=== PATIENT | male | born 1960 | race African-American/Black ===

== ENCOUNTER 2016-07-04 14:07 | Inpatient (IN) | payer OTHER ==
[2016-07-04] MEDS ORDERED: SODIUM CHLORIDE 1,000 ML IV ONE ×2 (14:28→16:16)
[2016-07-04 14:55] LABS: URINE APPEARANCE CLEAR; URINE BILIRUBIN NEGATIVE (NEGATIVE); URINE BLOOD NEGATIVE (NEGATIVE); URINE COLOR YELLOW; URINE GLUCOSE (UA) NEGATIVE (NEGATIVE); URINE KETONE NEGATIVE (NEGATIVE); URINE LEUK ESTERASE NEGATIVE (NEGATIVE); URINE NITRITE NEGATIVE (NEGATIVE); URINE PROTEIN NEGATIVE (NEGATIVE); URINE UROBILINOGEN NEGATIVE E.U./dl (0.2-1.0)
[2016-07-04 15:18] LABS: MCH 32.4 pg (25.7-33.7); MCHC 33.5 g/dl (32.0-35.9); MEAN CELL VOLUME 96.7 fl (80-96); MEAN PLT VOLUME 10.7 fl (7.5-11.1); PLATELET COUNT 131 K/MM3 (134-434); RDW 13.9 % (11.9-15.9); WHITE BLOOD COUNT 3.1 K/mm3 (4.0-10.0)
--- NOTE | 2016-07-04 15:29 | PDOC ---
History of Present Illness - General History Source: Patient Exam Limitations: No Limitations - History of Present Illness Initial Comments: 07/04/16 15:41 The patient is a 55 year old male with history of HIV (not on medications, viral load unknown) and history of EtOH abuse s/p detox sent from [facility] s/p mechanical fall this morning. He does report 2 weeks of nonproductive cough and 3 days of loose stool w/o any abdominal pain, pt denies any fever, but thouht someone told him he had a temperature. This morning he slipped and fell, he was wearing his antislip socks, but the disability services coordinator was on the top of his foot. He denies any lightheadedness, shortness of breath, headache, dizziness, palpitations, chest pain, abdominal pain, back pain, leg swelling, prior to the fall. He any denies melena or hematochezia. He denies wheezing or hemoptysis. He states his head hit the sink. No LOC. He denies headache, neck pain, visual changes, numbness/tingling, or focal weakness. He denies nausea, vomiting, or diaphoresis. He denies changes in eating or drinking. He denies any other injury. <Melanie Vivar - Last Filed: 07/04/16 15:41> - General History Source: Patient Exam Limitations: No Limitations <Gustavo Hernández - Last Filed: 07/04/16 18:33> - General Chief Complaint: Injury Stated Complaint: FALL Time Seen by Provider: 07/04/16 14:26 Past History <Melanie iVvar - Last Filed: 07/04/16 15:41> - Past Medical History Anemia: No Asthma: Yes Cancer: No Cardiac Disorders: No CVA: No COPD: No CHF: No Dementia: No Diabetes: No GI Disorders: No Disorders: No HTN: No Hypercholesterolemia: No HIV: Yes Kidney Stones: No Liver Disease: No Suicide Attempt (Hx): No Seizures: Yes (2014) Thyroid Disease: No - Surgical History Abdominal Surgery: No Appendectomy: No Cardiac Surgery: No Cholecystectomy: No Lung Surgery: No Neurologic Surgery: No Orthopedic Surgery: No - Reproductive History Testicular Surgery: No - Psycho/Social/Smoking Cessation Hx Anxiety: No Suicidal Ideation: No Smoking History: Current every day smoker Have you smoked in the past 12 months: Yes Number of Cigarettes Smoked Daily: 10 Cigars Per Day: 0 Information on smoking cessation initiated: No 'Breaking Loose' booklet given: 06/15/16 Hx Alcohol Use: Yes Drug/Substance Use Hx: No Substance Use Type: None Hx Substance Use Treatment: Yes (this is his first inpatient rehabilitation treatment) <Gustavo Hernández - Last Filed: 07/04/16 18:33> - Past Medical History Allergies/Adverse Reactions: Allergies Allergy/AdvReac Type Severity Reaction Status Date / Time No Known Allergies Allergy Verified 07/04/16 14:27 Home Medications: Ambulatory Orders NK [No Known Home Medication] 06/15/16 Trauma Specific PMHX - Complaint Specific PMHX Arthritis: No <Gustavo Hernández - Last Filed: 07/04/16 18:33> Review of Systems - Review of Systems Able to Perform ROS?: Yes Comments:: 07/04/16 15:42 CONSTITUTIONAL: No reported: fever, chills Diaphoresis, Generalized Weakness, Malaise, Loss of Appetite HEENT: No reported: Rhinorrhea, Nasal Congestion, Throat Pain, Throat Swelling, Difficulty Swallowing, Mouth Swelling, Ear Pain, Eye Pain, Visual Changes CARDIOVASCULAR: No reported: Chest Pain, Syncope, Palpitations, Irregular Heart Rate, Lightheadedness, Peripheral Edema RESPIRATORY: Present: nonproductive coughx2 weeks No reported: Shortness of Breath, SOB with Exertion, Orthopnea, Wheezing, Stridor, Hemoptysis GASTROINTESTINAL: Present: loose stoolx3 days No reported: Abdominal pain, Abdominal Distension, Nausea, Vomiting, Constipation, Melena, Hematochezia GENITOURINARY: No reported: Dysuria, Frequency, Urgency, Hesitancy, Flank Pain, Genital Pain MUSCULOSKELETAL: No reported: Myalgia, Arthralgia, Joint Swelling, Back pain, Neck Pain SKIN: No reported: Rash, Itching, Pallor HEMEATOLOGIC/IMMUNOLOGIC: No reported: Easy Bleeding, Easy Bruising, Lymphadenopathy, Frequent infections ENDOCRINE: No reported: Unexplained Weight Gain, Unexplained Weight Loss, Heat Intolerance , Cold Intolerance NEUROLOGIC: No reported: Headache, Focal Weakness, Paresthesias, Vertigo, Lightheadedness, Seizure, Mental Status Changes, Incontinence PSYCHIATRIC: No reported: Anxiety, Depression <Melanie Vivar - Last Filed: 07/04/16 15:41> *Physical Exam - Vital Signs Last Vital Signs Temp Pulse Resp BP Pulse Ox 97.7 F 109 H 18 108/72 96 07/04/16 14:10 07/04/16 14:10 07/04/16 14:10 07/04/16 14:10 07/04/16 14:10 - Physical Exam Comments: 07/04/16 15:42 GENERAL: The patient is awake, alert, and fully oriented, Nontoxic - in no acute distress. HEAD: Normocephalic, atraumatic. No tenderness, swelling, or abrasions. EYES: extraocular movements intact, sclera anicteric, conjunctiva clear. ENT: Normal voice, Moist mucous membranes. NECK: Normal range of motion, supple LUNGS: Breath sounds equal, clear to auscultation bilaterally. No wheezes, no rhonchi, no rales. HEART: Tachycardic rate, regular rhythm, without murmur, rub or gallop. ABDOMEN: Soft, nontender, normoactive bowel sounds. No guarding, no rebound. No CVA tenderness EXTREMITIES: Normal range of motion, no edema. No clubbing or cyanosis. No cords, erythema, or tenderness. NEUROLOGICAL: No facial assymetry, Normal speech, PSYCH: Normal mood, normal affect. SKIN: Warm, Dry, normal turgor, Back: No midline tenderness to the cervical, thoracic or lumbar spine Musculoskelatal: FROM of b/l shoulders, elbows, wrist. FROM of hips, knees, ankles - No signs of ecchymosis, erythema, or crepitus noted on palpation extremities, chest wall, clavicals, ribs, back. <Melanie Vivar - Last Filed: 07/04/16 15:41> - Vital Signs Last Vital Signs Temp Pulse Resp BP Pulse Ox 97.7 F 109 H 18 108/72 96 07/04/16 14:10 07/04/16 14:10 07/04/16 14:10 07/04/16 14:10 07/04/16 14:10 <Gustavo Hernández - Last Filed: 07/04/16 18:33> Heart Score/ECG Review - ECG Impressions Comment:: 07/04/16 15:29 Twelve-lead EKG was performed and reviewed by me. There is normal sinus rhythm with a rate of 108 Left axis deviation The intervals are normal. Q waves in inferior leads <Gustavo Hernández - Last Filed: 07/04/16 18:33> ED Treatment Course - LABORATORY CBC & Chemistry Diagram: 07/04/16 14:45 07/04/16 14:45 - ADDITIONAL ORDERS Additional order review: Laboratory Results 07/04/16 14:30 Urine Color Yellow Urine Appearance Clear Urine pH 7.0 D Ur Specific [place] 1.019 Urine Protein Negative Urine Glucose (UA) Negative Urine Ketones Negative Urine Blood Negative Urine Nitrite Negative Urine Bilirubin Negative Urine Urobilinogen Negative Ur Leukocyte Esterase Negative 07/04/16 14:45 RBC 3.43 L MCV 96.7 H MCHC 33.5 RDW 13.9 MPV 10.7 Neutrophils % Y Lymphocytes % Y - Medications Given in the ED: ED Medications Discontinued Medications Generic Name Dose Route Start Last Admin Trade Name Freq PRN Reason Stop Dose Admin Sodium Chloride 1,000 mls @ 1,000 mls/hr 07/04/16 14:28 07/04/16 15:00 Normal Saline - IV 07/04/16 15:27 1,000 mls/hr .Q1H ONE Administration <Melanie Vivar - Last Filed: 07/04/16 15:41> - LABORATORY CBC & Chemistry Diagram: 07/04/16 14:45 07/04/16 14:45 - ADDITIONAL ORDERS Additional order review: Laboratory Results 07/04/16 14:30 Urine Color Yellow Urine Appearance Clear Urine pH 7.0 D Ur Specific [place] 1.019 Urine Protein Negative Urine Glucose (UA) Negative Urine Ketones Negative Urine Blood Negative Urine Nitrite Negative Urine Bilirubin Negative Urine Urobilinogen Negative Ur Leukocyte Esterase Negative 07/04/16 14:45 RBC 3.43 L MCV 96.7 H MCHC 33.5 RDW 13.9 MPV 10.7 Neutrophils % Y Lymphocytes % Y <Gustavo Hernández - Last Filed: 07/04/16 18:33> Medical Decision Making - Medical Decision Making 07/04/16 15:25 55y M hx of HIV (not on HAART), etoh abuse s.p detox, in detox presents s/p mechanical fall - pt states he slipped on the floor ecause his socks were slippery (the grippy part of his socks were reversed and on the top). The pt states hehit a sink - denies LOC, n/v, vision cahnges, numbness/tingling/ weakness, lightehadedness, cp, palpitations, fever/chills. Pt does endorse having a 'cold' with congestion/cough for the past few days. Pts exam is unremarkable without any focal bony tenderness on his scalp, spine/back. pts hr noted mildly tachycardic - will check labs, cxr, to r/o pna will give fluids for hydration pt declines pain meds as he is not in pain. 07/04/16 16:37 The patients labs were reviewed noted for leukopenia, thrombocytopenia, approx baseline for patient pts Cr noted to be elevated along with BUN - it appears the pt had Cr that improved with oral hydration. suspect his sypmtoms secondary to dehydration. Pt received 2L of NS, will discharge the patient back to [facility] if his HR normalizes - will have dr. kitchen recheck Cr and further oral hydration. The plan was discussed with the patient as well as dr. Kitchen - The pt states he would prefer that as opposed to staying in the hospital for hydration and rechecking his lab work. If his Cr is worsening or has other sypmtoms will send back to hospital for further evaluation. They agree and are comfortable with the plan. if the pts HR is persistently elevated,w il consider observation in hospital for hydration and repeat labs. 07/04/16 18:30 pt still persistently tachycardic - after 2L his HR is still stable at around 108-110 pt otherwise has no complaints - will send repeat BMP, magnesium, TSH also consider ?PE?? will send screening dimer. if pt is persistently tachycardic for unkonwn reason - will admit for further management. <Gustavo Hernández - Last Filed: 07/04/16 18:33> *DC/Admit/Observation/Transfer - Attestations Scribe Attestion: 07/04/16 15:42 Documentation prepared by Melanie Vivar, acting as medical records library professor for Gustavo Hernández MD. <Melanie Vivar - Last Filed: 07/04/16 15:41> - Discharge Dispostion Admit: No <Gustavo Hernández - Last Filed: 07/04/16 18:33> Diagnosis at time of Disposition: Acute renal failure Qualifiers: Acute renal failure type: unspecified Qualified Code(s): N17.9 - Acute kidney failure, unspecified Head injury due to trauma Qualifiers: Encounter type: initial encounter Qualified Code(s): S09.90XA - Unspecified injury of head, initial encounter - Patient Instructions Printed Discharge Instructions: DI for Closed Head Injury Additional Instructions: Return to the emergency department immediately with ANY new, persistent or worsening symptoms. Your cr was elevated to 2.4, please have dr. Kitchen repeat the blood work tomorrow. You MUST call and follow up with your doctor tomorrow for further evaluation of your symptoms. Results were discussed with you. Please make sure your doctor reviews the results of your emergency evaluation.
[2016-07-04 15:45] LABS: ALBUMIN 2.9 g/dl (3.4-5.0); BILIRUBIN,TOTAL 0.3 mg/dL (0.2-1.0); CALCIUM 8.7 mg/dL (8.5-10.1); CREATININE 2.4 mg/dL (0.7-1.3); TOT PROT 8.8 g/dl (6.4-8.2)
[2016-07-04 16:00] LABS: PLATELET COMMENT2 NO CLUMPING NOTED; PLATELET ESTIMATE DECREASED (NORMAL)
[2016-07-04 19:08] LABS: CALCIUM 7.5 mg/dL (8.5-10.1); CREATININE 2.1 mg/dL (0.7-1.3)
--- NOTE | 2016-07-04 20:11 | PDOC ---
*Physical Exam - Vital Signs Last Vital Signs Temp Pulse Resp BP Pulse Ox 97.7 F 108 H 16 116/75 96 07/04/16 14:10 07/04/16 16:18 07/04/16 16:18 07/04/16 16:18 07/04/16 16:18 - Physical Exam General Appearance: Yes: Nourished ED Treatment Course - LABORATORY CBC & Chemistry Diagram: 07/04/16 14:45 07/04/16 18:40 - ADDITIONAL ORDERS Additional order review: Laboratory Results 07/04/16 07/04/16 07/04/16 18:40 18:40 18:40 D-Dimer 432 H Sodium 139 Potassium 3.6 D Chloride 109 H Carbon Dioxide 20 L Anion Gap 10 BUN 27 H Creatinine 2.1 H Creat Clearance w eGFR Random Glucose 99 Calcium 7.5 L Magnesium 2.3 Total Bilirubin AST ALT Alkaline Phosphatase Total Protein Albumin TSH Urine Color Urine Appearance Urine pH Ur Specific [place] Urine Protein Urine Glucose (UA) Urine Ketones Urine Blood Urine Nitrite Urine Bilirubin Urine Urobilinogen Ur Leukocyte Esterase 07/04/16 07/04/16 07/04/16 18:40 14:45 14:30 D-Dimer Sodium 139 Potassium 4.8 Chloride 105 Carbon Dioxide 23 Anion Gap 11 BUN 29 H D Creatinine 2.4 H D Creat Clearance w eGFR 28.04 Random Glucose 86 Calcium 8.7 Magnesium Total Bilirubin 0.3 D AST 51 H D ALT 46 D Alkaline Phosphatase 86 Total Protein 8.8 H Albumin 2.9 L TSH 2.37 D Urine Color Yellow Urine Appearance Clear Urine pH 7.0 D Ur Specific [place] 1.019 Urine Protein Negative Urine Glucose (UA) Negative Urine Ketones Negative Urine Blood Negative Urine Nitrite Negative Urine Bilirubin Negative Urine Urobilinogen Negative Ur Leukocyte Esterase Negative 07/04/16 14:45 RBC 3.43 L MCV 96.7 H MCHC 33.5 RDW 13.9 MPV 10.7 Neutrophils % 71.0 Lymphocytes % 10.0 Monocytes % 14.0 H Eosinophils % 2.0 - Medications Given in the ED: ED Medications Discontinued Medications Generic Name Dose Route Start Last Admin Trade Name Freq PRN Reason Stop Dose Admin Sodium Chloride 1,000 mls @ 1,000 mls/hr 07/04/16 14:28 07/04/16 15:00 Normal Saline - IV 07/04/16 15:27 1,000 mls/hr .Q1H ONE Administration Sodium Chloride 1,000 mls @ 1,000 mls/hr 07/04/16 16:16 07/04/16 16:27 Normal Saline - IV 07/04/16 17:15 1,000 mls/hr .Q1H ONE Administration *DC/Admit/Observation/Transfer Diagnosis at time of Disposition: Elevated d-dimer Acute renal failure Qualifiers: Acute renal failure type: unspecified Qualified Code(s): N17.9 - Acute kidney failure, unspecified Head injury due to trauma Qualifiers: Encounter type: initial encounter Qualified Code(s): S09.90XA - Unspecified injury of head, initial encounter - Discharge Dispostion Condition at time of disposition: Stable Admit: Yes - Referrals - Patient Instructions Printed Discharge Instructions: DI for Closed Head Injury Additional Instructions: Return to the emergency department immediately with ANY new, persistent or worsening symptoms. Your cr was elevated to 2.4, please have dr. Kitchen repeat the blood work tomorrow. You MUST call and follow up with your doctor tomorrow for further evaluation of your symptoms. Results were discussed with you. Please make sure your doctor reviews the results of your emergency evaluation. - Post Discharge Activity
[2016-07-04] MEDS: SODIUM CHLORIDE 1,000 ML IV SCH (22:15)
--- NOTE | 2016-07-04 22:25 | HP ---
CHIEF COMPLAINT: Slipped and fell PCP: No PCP HISTORY OF PRESENT ILLNESS: Patient is a 55 year old male was sent from [facility] (Detox) s/p mechanical fall. A/c to the patient, he was about go to the sink when he slipped, fell and hit the right side of his head on to the sink. It was an unwitnessed fall but when there was a loud noise, the nurses came in and helped him. Before the incident, he didn't have any symptoms. After the fall, he started having headache which was relieved after taking tylenol. No complaints of dizziness, vertigo, tingling, numbness after the fall. Patient mentions that first he went to [facility] admitted on the regular floor for detox for alcohol dependence. He was discharged on 06/14/2016 and admitted at [facility] detox facility on 06/15/2016. Patient mentions he used to drink 1 pint of rum/day (finished in 15mins), last drink was 19 days ago. Complaints of nausea and non projectile, non bilious vomiting 3-4 times/day since few days. Also had diarrhoea 3-4times/day since several days until yesterday., non bloody. However, no bowel movements today. Denies abdominal pain, chest pain, sob, cough, palpitation. Also complaints of increased frequency of urination, urinary incontinence, nocturia (3-4times/night) for the last 2 months but no burning urination. Was diagnosed to have HIV 4years ago. (doesn't remember the last CD4 count). Was on HAART therapy for 3months but left 2 months ago since he ran out of medication, said he gets the meds from [facility]. ER course was notable for: (1) Afebrile, Hypotensive 90/55mmHg, Tachycardic (109bpm); Leukopenic (3.1); Thrombocytopenic (131), elevated D-dimer 432 (2) Creatinine 2.1 ( baseline 1.3 06/25/2016); CT head-Negative for acute pathology (3) IV fluids 2L Recent Travel: None PAST MEDICAL HISTORY: HIV not on HAART therapy, Asthma, Alcohol/nicotine dependence, alcohol related seizure PAST SURGICAL HISTORY: None Social History: Smoking:Current smoker, 10 cigs a day, started smoking at age 13 years Alcohol: 1pint of rum/day, last drink 19 days ago Drugs: Denies Family History: Allergies No Known Allergies Allergy (Verified 07/04/16 14:27) HOME MEDICATIONS: Home Medications Medication Instructions Recorded NK [No Known Home Medication] 06/15/16 REVIEW OF SYSTEMS CONSTITUTIONAL: Absent: fever, chills, diaphoresis, generalized weakness, malaise, loss of appetite, weight change HEENT: Absent: rhinorrhea, nasal congestion, throat pain, throat swelling, difficulty swallowing, mouth swelling, ear pain, eye pain, visual changes CARDIOVASCULAR: Absent: chest pain, syncope, palpitations, irregular heart rate, lightheadedness , peripheral edema RESPIRATORY: Absent: cough, shortness of breath, dyspnea with exertion, orthopnea, wheezing, stridor, hemoptysis GASTROINTESTINAL: Absent: abdominal pain, abdominal distension, nausea, vomiting, diarrhea, constipation, melena, hematochezia GENITOURINARY: Absent: dysuria, frequency, urgency, hesitancy, hematuria, flank pain, genital pain MUSCULOSKELETAL: Absent: myalgia, arthralgia, joint swelling, back pain, neck pain SKIN: Absent: rash, itching, pallor HEMATOLOGIC/IMMUNOLOGIC: Absent: easy bleeding, easy bruising, lymphadenopathy, frequent infections ENDOCRINE: Absent: unexplained weight gain, unexplained weight loss, heat intolerance, cold intolerance NEUROLOGIC: Present: Headache Absent: headache, focal weakness or paresthesias, dizziness, unsteady gait, seizure, mental status changes, bladder or bowel incontinence PSYCHIATRIC: Absent: anxiety, depression, suicidal or homicidal ideation, hallucinations. PHYSICAL EXAMINATION Vital Signs - 24 hr 07/04/16 21:56 Pulse Rate [ 117 H Right Radial] Respiratory 19 Rate Blood Pressure 130/82 [Left Arm] O2 Sat by Pulse 100 Oximetry (%) GENERAL: Patient is a normal built male, Awake, alert, and fully oriented, in no acute distress, poor hygiene. HEAD: Normal with no signs of trauma, tenderness on palpation in the right postauricular area EYES: EOM intact, no pallor or icterus. EARS, NOSE, THROAT: Ears normal. Moist mucous membranes. NECK: Normal range of motion, supple without lymphadenopathy, JVD, or masses. LUNGS: Breath sounds equal, clear to auscultation bilaterally. No wheezes, and no crackles. No accessory muscle use. HEART: Regular rate and rhythm, normal S1 and S2 without murmur, rub or gallop. ABDOMEN: Soft, nontender, not distended, normoactive bowel sounds, no guarding, no rebound, no masses. No hepatomegaly or splenomegaly. MUSCULOSKELETAL: Normal range of motion at all joints. No bony deformities or tenderness. No CVA tenderness. UPPER EXTREMITIES: 2+ pulses, warm, well-perfused. No cyanosis. No clubbing. Cap refill <2 seconds. No peripheral edema. LOWER EXTREMITIES: 2+ pulses, warm, well-perfused. No calf tenderness. No peripheral edema. NEUROLOGICAL: Cranial nerves II-XII intact. Normal speech. Normal gait. PSYCHIATRIC: Cooperative. Good eye contact. Appropriate mood and affect. SKIN: Warm, dry, normal turgor, no rashes or lesions noted. Dry cracked skin over bilateral foot ASSESSMENT/PLAN: Patient is a 55 year old male with significant past medical history of HIV not on HAART therapy, Asthma, Alcohol/nicotine dependence, alcohol related seizure was sent from [facility] (Detox) s/p mechanical fall. # Head trauma-s/p unwitnessed mechanical fall Patient sent from detox Afebrile, Hypotensive 90/55mmHg, Tachycardic (109bpm) Leukopenic (3.1); Thrombocytopenic (131), elevated D-dimer 432 CT head-Negative for acute pathology CT head-negative for acute pathology In the ED, patient received IV fluids 2L Placed on observation in Med-Surg Monitor change in mental status Neuro checks # Acute Kidney Injury- questionable CKD Creatinine 2.1 ( baseline 1.3 on 06/25/2016) IV hydration Avoid nephrotoxic drugs # HIV- Not on HAART therapy Ordered CD4 count ID consult placed Would consider starting on HAART therapy Counseling on medication compliance and the importance of continuing it # Alcohol/Nicotine dependence Sober since 19 days Detox to be continued Call to be placed tomorrow at [facility] to find out the medication he is on Not on withdrawals at this time # Alcohol related seizure No seizure activity at this time # FEN IV NS @ 100mls/hr Electrolytes to be repeated tomorrow Regular diet # Prophylaxis For DVT- On scds, ambulating For GI- Not indicated # Code Status: Full Code # Dispo: Admitted in Med-Surg. Duration of stay unknown. Illness, Investigation and Plan of care explained to the patient. He verbalized understanding. Case seen and discussed with Dr. Hanks. Visit type - Emergency Visit Emergency Visit: Yes ED Registration Date: 07/04/16 Care time: The patient presented to the Emergency Department on the above date and was hospitalized for further evaluation of their emergent condition. - New Patient This patient is new to me today: Yes Date on this admission: 07/04/16 - Critical Care Critical Care patient: No
[2016-07-05 06:06] LABS: BASOPHIL 1.2 % (0-2.0); EOSINOPHIL 8.5 % (0-4.5); MCH 32.7 pg (25.7-33.7); MCHC 33.6 g/dl (32.0-35.9); MEAN CELL VOLUME 97.4 fl (80-96); MEAN PLT VOLUME 10.5 fl (7.5-11.1); PLATELET COUNT 115 K/MM3 (134-434); WHITE BLOOD COUNT 2.8 K/mm3 (4.0-10.0)
[2016-07-05 06:29] LABS: ALBUMIN 2.8 g/dl (3.4-5.0); BILIRUBIN,TOTAL 0.3 mg/dL (0.2-1.0); CREATININE 1.9 mg/dL (0.7-1.3); MAGNESIUM 2.2 mg/dL (1.8-2.4); PHOSPHOROUS 2.4 mg/dL (2.5-4.9); TOT PROT 7.8 g/dl (6.4-8.2)
[2016-07-05 07:39] VITALS: BMI 21.1
--- NOTE | 2016-07-05 08:25 | PN ---
Progress Note, Physician Chief Complaint: ID 55 year old male alcohol dependence asked to see for HIV diagnosis several years living in [place]. THinks he was on several meds but really no idea about what meds or when he last took them. Alert NAD - Current Medication List Current Medications: Active Medications Sodium Chloride (Normal Saline -) 1,000 mls @ 83 mls/hr IV ASDIR SARAH Last Admin: 07/04/16 22:15 Dose: 83 mls/hr - Objective Vital Signs: Vital Signs Temperature 98.3 F 07/05/16 07:11 Pulse Rate 103 H 07/05/16 07:11 Respiratory Rate 20 07/05/16 07:11 Blood Pressure 108/72 07/05/16 07:11 O2 Sat by Pulse Oximetry (%) 99 07/05/16 03:49 Constitutional: Yes: Well Nourished, No Distress HENT: Yes: WNL, Atraumatic Neck: Yes: WNL, Supple Cardiovascular: Yes: Regular Rate and Rhythm, S1, S2 Respiratory: Yes: Rhonchi Gastrointestinal: Yes: WNL, Normal Bowel Sounds, Soft. No: Tenderness Edema: No Labs: CBC, BMP 07/05/16 05:53 07/05/16 05:53 Problem List - Problems (1) Acute renal failure Code(s): N17.9 - ACUTE KIDNEY FAILURE, UNSPECIFIED Qualifiers: Acute renal failure type: unspecified Qualified Code(s): N17.9 - Acute kidney failure, unspecified (2) Head injury due to trauma Code(s): S09.90XA - UNSPECIFIED INJURY OF HEAD, INITIAL ENCOUNTER Qualifiers: Encounter type: initial encounter Qualified Code(s): S09.90XA - Unspecified injury of head, initial encounter (3) HIV (human immunodeficiency virus infection) Code(s): Z21 - ASYMPTOMATIC HUMAN IMMUNODEFICIENCY VIRUS INFECTION STATUS Assessment/Plan Laboratory Tests 07/04/16 07/04/16 07/05/16 14:30 14:45 05:53 WBC 2.8 L Hgb 10.5 L Hct 31.2 L Plt Count 115 L Neutrophils % 70.0 Lymphocytes % 9.6 Monocytes % 10.7 H Eosinophils % 8.5 H D Band Neutrophils 3.0 BUN Creatinine Creat Clearance w eGFR Urine Glucose (UA) Negative Ur Leukocyte Esterase Negative 07/05/16 05:53 WBC Hgb Hct Plt Count Neutrophils % Lymphocytes % Monocytes % Eosinophils % Band Neutrophils BUN 20 H D Creatinine 1.9 H Creat Clearance w eGFR 36.72 Urine Glucose (UA) Ur Leukocyte Esterase Assessment Mechanical head injury ? HIV dementia ( cerebral atrophy) Chronic alcoholism THIERRY Plan T cells ordered Will attempt to find out his HIV clinic and his meds may or may not be possible in the time he will be here Brittany MUNOZ
--- NOTE | 2016-07-05 09:19 | CONS ---
INFECTIOUS DISEASE CONSULTATION DATE OF CONSULTATION: DATE OF DICTATION: 07/05/2016 This is a 55-year-old male with a history of HIV infection and chronic alcoholism, sent from the detoxification center at [facility] after he sustained a fall at the facility. He apparently slipped and fell and did not appear to lose consciousness. He was also noted according to the emergency room notes to have a nonproductive cough and 3 days of loose stool with abdominal discomfort. No fever was documented. Currently, the patient appears in no acute distress. He denies any abdominal pain, diarrhea, cough, but is a poor historian. He admits to being HIV positive for the last 3-4 years, diagnosed in [place] where he lives. He also thinks that he had been on HIV medications, though had no idea what he was taking, only that he was taking several pills. He has not been on medication for several months, most likely as a result of his active drinking for which he was originally admitted to detoxification. He has no history of substance abuse, hepatitis C. Denies any fevers, chills, night sweats, abdominal pain, or urinary complaints. Here, he was noted to have elevated BUN and creatinine. PAST MEDICAL HISTORY: Includes asthma, seizure disorder diagnosed in 2015. MEDICATIONS: No home medications. ALLERGIES: None known. SOCIAL HISTORY: Chronic alcoholism, heavy smoker for many years, lives in [place] with his sister. FAMILY HISTORY/REVIEW OF SYSTEMS: All systems reviewed and noncontributory along with family history. PHYSICAL EXAMINATION: General: He was an alert male in no acute distress. Admitting Vital Signs: Temperature 97.7, pulse 109, blood pressure 108/72, respirations 18, O2 saturation 100% on room air. Neck: Supple. Lungs: Clear to percussion and auscultation. Heart: S1, S2. Regular rhythm without audible murmur. Abdomen: Soft, nontender, nondistended. Normoactive bowel sounds. No guarding. No rebound. Extremities: No clubbing, cyanosis, or edema. LABORATORY DATA: White count 3.1, hemoglobin 11.1, platelets of 131, polys 71%, lymphs 10, monocytes 14, eosinophils 2, bands 3. D-dimer 432. BUN 29, creatinine 2.4, bilirubin 0.3, ALT 46. Urinalysis negative. T cells ordered, pending. Chest x-ray with no acute infiltrate. CT of the head shows cerebral atrophy. ASSESSMENT: A 55-year-old male with history of chronic alcoholism and seizure disorder admitted from the detoxification unit following a fall. No obvious loss of consciousness noted. No fever and currently no systemic signs of infection. He has not been on human immunodeficiency virus medication due to nonadherence. At this point, I have no idea, nor does he, what medications he was previously taking. 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 We will attempt to get the information through the [facility], and this may or may not be possible. For now, observe off of his HIV medications. Continue with intravenous fluids for acute kidney injury. MADONNA SANDHU M.D. [id number]
[2016-07-05] MEDS ORDERED: chlordiazePOXIDE HCL 25 MG CAPSULE PO PRN (12:47)
[2016-07-05] MEDS: chlordiazePOXIDE HCL 25 MG CAPSULE PO SCH ×2 (13:12→18:01)
[2016-07-05] MEDS: NAPH,MB-DB/K PH,MBDB POWDER PACKET PO SCH ×2 (13:13→21:39)
--- NOTE | 2016-07-05 13:32 | EKG ---
Test Reason : Blood Pressure : / mmHG Vent. Rate : 108 BPM Atrial Rate : 108 BPM P-R Int : 162 ms QRS Dur : 076 ms QT Int : 354 ms P-R-T Axes : 062 -52 041 degrees QTc Int : 474 ms SINUS TACHYCARDIA LEFT AXIS DEVIATION INFERIOR INFARCT (CITED ON OR BEFORE 15-JUN-2016) ABNORMAL ECG WHEN COMPARED WITH ECG OF 15-JUN-2016 23:35, NO SIGNIFICANT CHANGE WAS FOUND Confirmed by LAURA RIOS MD ([id number]) on 07/05/2016 1:31:29 PM Referred By: Confirmed By:LAURA RIOS MD
--- NOTE | 2016-07-05 13:42 | CONSULT ---
Consult Detox [facility] Reason for Current Admission/Consult: h/o chronic alcoholism - History History of Present Illness: 55 y/o m pt with h/o chronic alcoholism who has undergone detox with librium . Admitted to rehab who was transfered to [facility] for further evaluation after he fell and hit his head. - History Source History Provided By: Patient Limitations to Obtaining History: No Limitations - Alcohol/Substance Use Hx Alcohol Use: Yes (rum 1 pt /d ) - Current Drug/Alcohol Use Alcohol Route: Oral Frequency: Daily Amount used: rum 1 pt or >/d Age of first use: 13 Date of Last Use: 06/12/16 - Past Medical History Psych: Yes: Schizophrenia Musculoskeletal: Yes: Other (weakness lower exxtremities ebenezer. ) Dermatology: Yes: Other (dry skin ) - Significant Medical Findings: m pt with h./o of HIV last tx'ed at [facility] 2 yrs ago . No ArV over similar time . CIWA Score - CIWA Score Nausea/Vomitin-No Nausea/No Vomiting Muscle Tremors: 1-None Visible, but [place] Anxiety: 1-Mildly Anxious Agitation: 1-Slight > Activity Paroxysmal Sweats: No Perspiration Orientation: 0-Oriented Tacttile Disturbances: 1-Very Mild Itch/Numbness Auditory Disturbances: 0-None Visual Disturbances: 0-None Headache: 0-None Present CIWA-Ar Total Score: 4 Assessment Plan - Diagnosis (1) Acute renal failure Status: Acute Qualifiers: Acute renal failure type: unspecified Qualified Code(s): N17.9 - Acute kidney failure, unspecified (2) HIV (human immunodeficiency virus infection) Status: Chronic (3) Head injury due to trauma Status: Acute Qualifiers: Encounter type: initial encounter Qualified Code(s): S09.90XA - Unspecified injury of head, initial encounter (4) Alcohol dependence with uncomplicated withdrawal Status: Inactive Comment: s/p detox for alcohol with librium - no detox indicated at this time . (5) Dry skin dermatitis Status: Chronic (6) Nicotine dependence Status: Chronic Qualifiers: Nicotine product type: cigarettes Substance use status: in withdrawal Qualified Code(s): F17.213 - Nicotine dependence, cigarettes, with withdrawal - Plan Plan: 55 y/o m pt that already underwent detox for alcohol with librium regimen . Has been in rehab since 06/15/16. At this time no detox protocol indicated , will d/ c librium . Pt appearing better with hydration . Cont NRT. - Medication Detox Regimen/Protocol: Not Applicable
--- NOTE | 2016-07-05 16:44 | PN ---
Physical Exam: SUBJECTIVE: Patient seen and examined, he is not happy he has to stay, he has no complaints, he has no withdrawal symptoms. OBJECTIVE: Vital Signs Period Temp Pulse Resp BP Sys/Goncalves Pulse Ox Last 24 Hr 98.2 F-98.9 F 101-117 19-20 108-158/70-84 99-100 PE Neuro: alert, awake, cn 2-12intact Heent: missing fontal teeth Pulm: CTAB CV: s1 s2 rrr no mrg Abd: s nt nd + bs EXT: warm, no le edema Skin: dry feet are flaky Laboratory Results - last 24 hr 07/05/16 07/05/16 05:53 05:53 WBC 2.8 L RBC 3.20 L Hgb 10.5 L Hct 31.2 L MCV 97.4 H MCHC 33.6 RDW 14.0 Plt Count 115 L MPV 10.5 Neutrophils % 70.0 Lymphocytes % 9.6 Monocytes % 10.7 H Eosinophils % 8.5 H D Basophils % 1.2 Sodium 143 Potassium 4.2 Chloride 112 H Carbon Dioxide 21 Anion Gap 10 BUN 20 H D Creatinine 1.9 H Creat Clearance w eGFR 36.72 Random Glucose 80 Calcium 8.0 L Phosphorus 2.4 L Magnesium 2.2 Total Bilirubin 0.3 AST 51 H ALT 45 Alkaline Phosphatase 77 Total Protein 7.8 Albumin 2.8 L Active Medications Generic Name Dose Route Start Last Admin Trade Name Freq PRN Reason Stop Dose Admin Chlordiazepoxide HCl 50 mg 07/05/16 11:00 07/05/16 13:12 Librium - PO 07/06/16 05:01 50 mg [id number] SARAH Administration Chlordiazepoxide HCl 25 mg 07/05/16 12:47 Librium - PO 07/08/16 12:46 Q4H PRN WITHDRAWAL(CONT SUBST) Chlordiazepoxide HCl 25 mg 07/06/16 11:00 Librium - PO 07/07/16 05:01 [id number] SARAH Chlordiazepoxide HCl 15 mg 07/07/16 11:00 Librium - PO 07/08/16 05:01 [id number] SARAH Sodium Chloride 1,000 mls @ 83 mls/hr 07/04/16 21:30 07/04/16 22:15 Normal Saline - IV 83 mls/hr ASDIR SARAH Administration Potassium Phos/Sodium Phos 1 packet 07/05/16 13:00 07/05/16 13:13 Phos-Nak Packet - PO 07/07/16 12:59 1 packet BID SARAH Administration Assessment: 55 year old male with significant past medical history of HIV not on HAART therapy, Asthma, Alcohol/nicotine dependence, alcohol related seizure admitted from [facility] (Detox) s/p mechanical fall and THIERRY Plan: 1. Head trauma-s/p unwitnessed mechanical fall - No residual effects noted CT head-Negative for acute pathology 2. THIERRY - Improving with fluids - Continue IVF 83cc/hr - Avoid nephrotoxic drugs 3. HIV - Per ID pt on HAART meds, last CD4 32 - Hold on initiation of treatment until understand pt wishes for treatment terminal worker, he will return to his home clinic in [place], [place] - [facility] while inpt 4. Alcohol/Nicotine dependence - No acute indication for libirum detox per Dr. Kitchen 5. Alcohol related seizure No seizure activity at this time 6. Hypophosphatemia - Replete k phos 7. Tachycardia - Sinus tachycardia, asymptomatic - Will monitor Dispo: - Return to [facility] Visit type - Emergency Visit Emergency Visit: Yes ED Registration Date: 07/07/16 Care time: The patient presented to the Emergency Department on the above date and was hospitalized for further evaluation of their emergent condition. - New Patient This patient is new to me today: Yes Date on this admission: 07/07/16 - Critical Care Critical Care patient: No
[2016-07-05] MEDS: SODIUM CHLORIDE 1,000 ML IV SCH (19:05)
[2016-07-06 08:13] LABS: ALBUMIN 2.5 g/dl (3.4-5.0)
[2016-07-06 08:17] LABS: BILIRUBIN,TOTAL 0.4 mg/dL (0.2-1.0); CREATININE 1.5 mg/dL (0.7-1.3); TOT PROT 7.3 g/dl (6.4-8.2)
[2016-07-06] MEDS ORDERED: SULFAMETHOXAZOLE/TRIMETHOPRIM 800MG/160MG D.S. TABLET PO SCH (10:00)
[2016-07-06] MEDS: NAPH,MB-DB/K PH,MBDB POWDER PACKET PO SCH ×2 (10:19→21:22)
[2016-07-06] MEDS ORDERED: chlordiazePOXIDE HCL 25 MG CAPSULE PO SCH (11:00)
--- NOTE | 2016-07-06 11:10 | PN ---
Progress Note, Physician Chief Complaint: ID Wants to be discharged Getting IVF - Current Medication List Current Medications: Active Medications Chlordiazepoxide HCl (Librium -) 25 mg PO Q4H PRN PRN Reason: WITHDRAWAL(CONT SUBST) Stop: 07/08/16 12:46 Sodium Chloride (Normal Saline -) 1,000 mls @ 83 mls/hr IV ASDIR SARAH Last Admin: 07/05/16 19:05 Dose: 83 mls/hr Potassium Phos/Sodium Phos (Phos-Nak Packet -) 1 packet PO BID SARAH Stop: 07/07/16 12:59 Last Admin: 07/06/16 10:19 Dose: 1 packet Trimethoprim/Sulfamethoxazole (Bactrim Ds -) 1 each PO MoWeFr@1000 SARAH - Objective Vital Signs: Vital Signs Temperature 97.5 F L 07/06/16 10:00 Pulse Rate 101 H 07/06/16 10:00 Respiratory Rate 20 07/06/16 10:00 Blood Pressure 103/66 07/06/16 10:00 O2 Sat by Pulse Oximetry (%) 96 07/05/16 09:00 Constitutional: Yes: No Distress HENT: Yes: WNL, Atraumatic Neck: Yes: WNL, Supple Cardiovascular: Yes: Regular Rate and Rhythm, S1, S2. No: Murmur Respiratory: Yes: WNL, Regular, CTA Bilaterally, Rales Gastrointestinal: Yes: WNL, Normal Bowel Sounds, Soft. No: Tenderness, Tenderness, Rebound Edema: No Labs: CBC, BMP 07/05/16 05:53 07/06/16 06:00 Problem List - Problems (1) Acute renal failure Code(s): N17.9 - ACUTE KIDNEY FAILURE, UNSPECIFIED Qualifiers: Acute renal failure type: unspecified Qualified Code(s): N17.9 - Acute kidney failure, unspecified (2) Head injury due to trauma Code(s): S09.90XA - UNSPECIFIED INJURY OF HEAD, INITIAL ENCOUNTER Qualifiers: Encounter type: initial encounter Qualified Code(s): S09.90XA - Unspecified injury of head, initial encounter (3) HIV (human immunodeficiency virus infection) Code(s): Z21 - ASYMPTOMATIC HUMAN IMMUNODEFICIENCY VIRUS INFECTION STATUS Assessment/Plan Laboratory Tests 07/04/16 07/06/16 14:30 06:00 BUN 14 D AST 45 H Total Protein 7.3 Albumin 2.5 L Urine Protein Negative Assessment Chronic kidney disease ? HIV infection Substance abuse Plan Sonogram kidney ? May have baseline renal insufficiency Bactrim changed to every other day Discussed primary provider This is not the forum in which to start HIV medication ( ART) Brittany MUNOZ
[2016-07-06 14:51] LABS: CALCIUM 8.3 mg/dL (8.5-10.1); CREATININE 1.5 mg/dL (0.7-1.3)
[2016-07-06] MEDS: SODIUM CHLORIDE 1,000 ML IV SCH (21:23)
[2016-07-07 00:06] LABS: % CD 3 POS. LYMPH. 67.1 % (57.5-86.2); % CD 4 POS LYM 14.4 % (30.8-58.5); %CD3+CD4+CD8+ 0.4 % (Not Estab.); %CD3+CD4+CD8- 13.9 % (Not Estab.); %CD3+CD4-CD8+ 51.2 % (Not Estab.); %CD3+CD4-CD8- 1.6 % (Not Estab.); CD4/CD8 0.28 (0.92-3.72); CD4/CD8 NYSDOH RATIO 0.27 (Not Estab.)
[2016-07-07] MEDS: SODIUM CHLORIDE 1,000 ML IV SCH (06:30)
[2016-07-07] MEDS ORDERED: SULFAMETHOXAZOLE/TRIMETHOPRIM 800MG/160MG D.S. TABLET PO SCH (10:00)
[2016-07-07 10:02] VITALS: BP 108/76; PULSE 100; TEMP 96
[2016-07-07] MEDS: NAPH,MB-DB/K PH,MBDB POWDER PACKET PO SCH (10:19)
[2016-07-07] MEDS ORDERED: chlordiazePOXIDE 5 MG CAPSULE PO SCH (11:00)
--- NOTE | 2016-07-07 11:10 | DS ---
Physical Exam: SUBJECTIVE: Patient seen and examined. No acute issues. OBJECTIVE: PE Neuro: alert, awake, cn 2-12intact Heent: missing fontal teeth Pulm: CTAB CV: s1 s2 rrr no mrg Abd: s nt nd + bs EXT: warm, no le edema HOSPITAL COURSE: Date of Admission:07/07/16 Date of Discharge: 07/07/16 Minutes to complete discharge: 35 Discharge Summary Reason For Visit: ACUTE RENAL FAILURE Current Active Problems Acute renal failure (Acute) Elevated d-dimer (Acute) Head injury due to trauma (Acute) HIV (human immunodeficiency virus infection) (Chronic) Hospital Course: Initial Hospital Course: Briefly, this 55 year old male was sent from [facility] (Detox) s/p mechanical fall. A/c to the patient, he was about go to the sink when he slipped, fell and hit the right side of his head on to the sink. It was an unwitnessed fall but when there was a loud noise, the nurses came in and helped him. Before the incident, he didn't have any symptoms. After the fall, he started having headache which was relieved after taking tylenol. No complaints of dizziness, vertigo, tingling, numbness after the fall. Patient mentions that first he went to [facility] admitted on the regular floor for detox for alcohol dependence. He was discharged on 06/14/2016 and admitted at [facility] detox facility on 06/15/2016. Patient mentions he used to drink 1 pint of rum/day (finished in 15mins), last drink was 19 days ago. Complaints of nausea and non projectile, non bilious vomiting 3-4 times/day since few days. Also had diarrhoea 3-4times/day since several days until yesterday., non bloody. However, no bowel movements today. Also complaints of increased frequency of urination, urinary incontinence, nocturia (3-4times/night) for the last 2 months but no burning urination. Was diagnosed to have HIV 4years ago. (doesn't remember the last CD4 count). Was on HAART therapy for 3months but left 2 months ago since he ran out of medication, said he gets the meds from [facility]. Subsequent Hospital Course/Progress Note/Discharge Summary by a/p: Assessment: 55 year old male with significant past medical history of HIV not on HAART therapy, Asthma, Alcohol/nicotine dependence, alcohol related seizure admitted from [facility] (Detox) s/p mechanical fall and THIERRY Plan: 1. Head trauma-s/p unwitnessed mechanical fall - No residual effects noted - CT head-Negative for acute pathology 2. THIERRY - Likely from dehydration d/t vomiting - Cr 1.5 on d/c, d//w Dr. Kitchen re follow up he agrees 3. HIV - Per ID pt on HAART meds, last CD4 32 - No initiation of treatment here, as will return to his home clinic in [place], [place] per ID 4. Alcohol/Nicotine dependence - No acute indication for libirum detox per Dr. Kitchen 5. Alcohol related seizure No seizure activity at this time 6. Hypophosphatemia - Repleted 7. Tachycardia - HR labile, remains asymptomatic Dispo: - Return to [facility], d/w Dr. Kitchen Condition: Stable - Instructions Diet, Activity, Other Instructions: Please return to the ED for any new, persistent, or worsening symptoms. Have Dr. Kitchen follow your kidney function while you continue your admission at [facility] Drink plenty of water to keep yourself hydrated Referrals: Carlin Kitchen MD [Staff Physician] - - Home Medications Comprehensive Discharge Medication List: Ambulatory Orders NK [No Known Home Medication] 06/15/16 This patient is new to me today: No Emergency Visit: Yes ED Registration Date: 07/07/16 Care time: The patient presented to the Emergency Department on the above date and was hospitalized for further evaluation of their emergent condition. Critical Care patient: No - Discharge Referral Referred to [facility] Med P.C.: No
== END 2016-07-07 12:50 | disposition other institution (70) | DRG 460 ==
LOC: JER 14:07 → JERBED 20:13 → J7W 07-05 07:04 → OBSVTOIN 07-07 08:56
PROVIDERS: ADMIT Internal Medicine; ATTEND Internal Medicine
DX: N17.9 Acute kidney failure, unspecified (principal); S09.8XXA Other specified injuries of head, initial encounter; W19.XXXA Unspecified fall, initial encounter; Y93.9 Activity, unspecified; Y92.89 Other specified places as the place of occurrence of the external cause; Y99.9 Unspecified external cause status; Z21 Asymptomatic human immunodeficiency virus [HIV] infection status; F10.20 Alcohol dependence, uncomplicated; R00.0 Tachycardia, unspecified; E83.39 Other disorders of phosphorus metabolism; F17.210 Nicotine dependence, cigarettes, uncomplicated
CPT/HCPCS: 36415; 70450-TC; 71020-TC; 76775-TC; 80048; 80053; 81003; 83735; 84100; 84443; 85025; 85379; 86359; 86360; 93005; 93010; 99285-25; G0378